=== PATIENT | male | born 1985 | race Caucasian/White ===

== ENCOUNTER 2016-05-09 06:35 | Day surgery (SDC) | payer OTHER ==
[2016-05-08 14:00] VITALS: BMI 29.7
[2016-05-09 08:08] VITALS: TEMP 97.5
[2016-05-09 08:40] VITALS: BP 126/85; PULSE 74
--- NOTE | 2016-05-10 12:31 | PATH ---
Surgical Pathology Report Patient Name: ERIS IQBAL [facility]. Rec. #: [id number] /Age/Gender: 1985 (Age: 30) / M Account: [id number] Location: [facility] Taken: 05/09/2016 Received: 05/09/2016 Reported: 05/10/2016 Physicians: Quinn Fregoso M.D. Specimen(s) Received A: BX ANTRUM B: BX ESOPHAGUS Clinical History GERD, normal EGD Final Diagnosis A. STOMACH, ANTRUM, BIOPSY: GASTRIC FUNDIC MUCOSA WITH NO PATHOLOGIC CHANGES. IMMUNOSTAIN FOR H. PYLORI IS NEGATIVE. B. ESOPHAGUS, BIOPSY: SQUAMOUS EPITHELIUM WITH PAPILLOMATOSIS SUGGESTIVE OF REFLUX ESOPHAGITIS. NO INTESTINAL METAPLASIA IDENTIFIED (NO RAYMOND'S IDENTIFIED). NO EOSINOPHILIC ESOPHAGITIS IDENTIFIED. Electronically Signed Pepito Gray M.D. Gross Description A. Received in formalin, labeled "biopsy antrum" are 2 rose, irregular portions of soft tissue measuring 0.4 and 0.9 cm. in greatest dimension. The specimens are submitted in toto in one cassette. B. Received in formalin, labeled "biopsy esophagus" are 2 rose, irregular portions of soft tissue measuring 0.3 and 0.6 cm. in greatest dimension. The specimens are submitted in toto in one cassette. 05/09/2016 [facility]05/09/2016
== END 2016-05-09 08:51 | disposition home or self-care (01) ==
LOC: JASU-ENDO 06:35
PROVIDERS: ATTEND Internal Medicine Gastroenterology
PROC: 0DB68ZX Excision of Stomach, Via Natural or Artificial Opening Endoscopic, Diagnostic (ICD-10-PCS; 2016-05-09)
PROC: 0DB28ZX Excision of Middle Esophagus, Via Natural or Artificial Opening Endoscopic, Diagnostic (ICD-10-PCS; principal; 2016-05-09 07:30)
DX: R10.9 Unspecified abdominal pain (principal)
CPT/HCPCS: 88305-TC; 88342-TC